=== PATIENT | female | born 2000 | race Caucasian/White ===

== ENCOUNTER 2019-08-27 07:34 | Outpatient (CLI) | payer BC ==
--- NOTE | 2019-08-27 10:46 | NM ---
NUCLEAR MEDICINE HIDA SCAN: HISTORY: Biliary dyskinesia. COMPARISON: None. TECHNIQUE: Patient was administered 5.3 mCi of technetium 99m mebrofenin intravenously. Ejection fraction was de termined after the patient was administered 8 ounces of Ensure orally, 1 hour post injection. FINDINGS: Appropriate uptake of the radiotracer by the hepatic parenchyma. Passage of radiotracer from the comm on bile duct into small bowel loops. Radiotracer does localize to the gallbladder as early as 10 minutes. Gallbladder ejection fraction: 84%. IMPRESSION: 1. No scintigraphic evidence of acute cholecystitis. 2. 84% ejection fraction. No scintigraphic evidence of gallbladder dyskinesia. Transcribed Date/Time: 08/27/2019 10:50 AM
== END 2019-08-27 07:35 | disposition home or self-care (01) ==
LOC: NM 07:34
PROVIDERS: ATTEND Surgery
DX: K82.8 Other specified diseases of gallbladder (principal)
CPT/HCPCS: 78227; A9537